=== PATIENT | female | born 1995 | race Caucasian/White ===

== ENCOUNTER → 2016-09-10 | Outpatient (CLI) | payer OTHER ==
--- NOTE | 2016-09-11 12:19 | US ---
EXAM: Ultrasound thyroid CLINICAL INDICATION: Goiter. TECHNIQUE: Multiple sonographic images of the thyroid gland were obtained. COMPARISONS: None. FINDINGS: The right lobe measures 3.5 x 1.0 x 1.5 cm, which is within normal limits and is normal in echotexture. The left lobe measures 3.2 x 1.1 x 1.0 cm which is within normal limits and is normal in echotexture. Isthmus measures 2.9 mm in AP dimension. No abnormal calcifications appreciated within either thyroid lobe. No lymphadenopathy or abnormal soft tissue masses or fluid collections identified in the incidentally imaged soft tissues. IMPRESSION: Normal size and sonographic appearance of the thyroid. Electronically signed by: Bran Lopez MD 09/11/2016 12:19 PM CDT
== END | disposition home or self-care (01) ==
LOC: US 08:07
PROVIDERS: ATTEND Family Medicine
DX: E04.0 Nontoxic diffuse goiter (principal)

== ENCOUNTER → 2017-12-02 | Outpatient (CLI) | payer BC, OTHER ==
--- NOTE | 2017-12-02 16:27 | US ---
US THYROID CLINICAL STATEMENT: GOITER. COMPARISON: None FINDINGS: Size right thyroid lobe: 3.5 x 1.4 x 1.3 cm Size left thyroid lobe: 4.1 x 1.2 x 1.0 cm Size isthmus: 0.3 cm Estimated total number of nodules greater than or equal to 1 cm: 0 Nodule 1: Size: 0.6 x 0.3 x 0.3 cm Location: Right Mid Composition: solid or almost completely solid: 2 points Echogenicity: hypoechoic: 2 points Shape: wider than tall: 0 points Margins: ill-defined: 0 points Echogenic foci: none: 0 points ACR Total Points: 4; ACR TI-RADS risk category: TR4 - moderately suspicious nodule. Scanning of the soft tissues around the thyroid gland show no distinct solid mass or cyst. No enlarged calcifications are parenchymal edema. No skin changes. No abnormal vascularity. IMPRESSION: 1. Nodule 1: ACR TI-RADS 2017 Category 4. Recommend: No further follow-up. Please see below.* Soft tissue around the thyroid gland was unremarkable. *ACR TI-RADS 2017 Recommendations: TR1: No FNA or follow up TR2: No FNA or follow up TR3: FNA if >/= 2.5 cm, follow up if 1.5 - 2.4 cm in 1, 3, and 5 years TR4: FNA if >/= 1.5 cm, follow up if 1.0 - 1.4 cm in 1, 2, 3, and 5 years TR5: FNA if >/= 1.0 cm, follow up if 0.5 - 0.9 cm every year for 5 years ACR TI-RADS recommends that no more than two nodules with the highest ACR TI-RADS total point should be biopsied and no more than four nodules should be followed. Electronically signed by: Vitor Booth MD 12/02/2017 4:26 PM CDT
== END ==
LOC: US 10:45
PROVIDERS: ATTEND Family Medicine
DX: E04.9 Nontoxic goiter, unspecified (principal)